=== PATIENT | male | born 2005 | race Caucasian/White ===

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

== ENCOUNTER 2025-03-17 21:13 | Emergency (ER) | payer MEDICAID ==
[~2025-03-17] VITALS: Ht 175.3 cm; Wt 52.1 kg
[2025-03-17 21:14] VITALS: TEMP 97.2
[2025-03-17] MEDS: proparacaine 0.5% ophthalmic drops 15ml RIGHTEYE ONE (22:20)
[2025-03-17] MEDS: cyclopentolate 1% 2ml ophthalmic solution RIGHTEYE ONE (22:20)
[2025-03-17] MEDS: HYDROcodone/acetaminophen 10/325mg tab PO ONE (22:22)
--- NOTE | 2025-03-17 23:36 | Physician Documentation ---
History of Present Illness ~ Chief Complaint: Eye Pain Stated Complaint: EYE PAIN Time Seen by MD: 22:15 OK to notify your PCP?: Yes Primary Medical Doctor: [facility] Source: patient, RN/MD, RN notes reviewed, old records Mode of Arrival: POV Exam Limitations: no limitations HPI 19 year old male seen on bed 04 presents to the emergency department for complaints of right sided eye pain that began tonight at 1900. He states that today his vision in his right eye became blurry, he took a nap at 1500 and when he woke up at 1900 his pain was 10/10. He was brought in by his mother for evaluation. Patient states that he uses electronics and looks at screens for over ten hours a day. Medication Reconciliation Allergies: Coded Allergies: No Known Allergies (Unverified , 03/17/25) Past Medical History Past Medical History: No Pertinent History Past Surgical History: appendectomy Alcohol Use: None Drug Use: marijuana Lives with: Family Lives In: Home Occupation: student, child Review of Systems All Other Systems at this time: Reviewed and Negative ROS As stated above in the HPI, otherwise all systems are reviewed and negative. Physical Exam Vital Signs: RN Vital Signs have been reviewed: Yes, Temperature: 97.2, Source: Oral, Heart Rate: 78, Respiratory Rate: 16, BP: 188/132, Pulse Oximetry: 100, Weight: 52.100 Oxygen Flow Rate: 0 Pulse Oximetry Reflects: adequate oxygenation Physical Exam General: The patient is well developed, well nourished, nontoxic appearing and is in no acute distress. Skin: [place], warm and dry with no rashes. HEENT: Right pupil fixed 1mm to the left. Head was normocephalic and atraumatic. Eyes - pupils equal, round, reactive to light and accommodation. Extraocular movements were intact. Conjunctivae were nonicteric. Ears - bilateral tympanic membranes were normal. The mouth and oropharynx were clear with moist mucous membranes. There were no pharyngeal exudates or erythema. Neck: Supple and nontender. There was no jugular venous distention, lymphadenopathy, thyromegaly or masses. Chest: Clear to auscultation bilaterally without wheezes, rales or rhonchi. No accessory muscle use. No dullness to percussion. Heart: Rate regular and rhythmic. S1, S2. No murmurs. Palpation of the chest wall was normal. No rubs or thrills. Abdomen: Soft, nontender and nondistended. Positive bowel sounds. No guarding or rebound. No hepatosplenomegaly or palpable masses. Extremities: No cyanosis, clubbing or edema. The patient moves all extremities. Pulses were equal and symmetric. Neurologic: Cranial nerves II-XII were intact. Sensation was intact to light touch throughout. Motor strength was 5/5 in all four extremities. Deep tendon reflexes were intact in both upper and lower extremities. Psychologic: The patient was oriented to person, place and time. The patient demonstrated appropriate judgement and insight. Progress Results/Orders Reviewed/noted all lab results: Yes Results/Orders Completed Orders - SANDIP SMITH MD Hydrocodone/Apap 10/325 ([place] 10/325mg (03/17/25 22:15) Proparacaine Ophth Solution (Alcaine Oph (03/17/25 22:20) Cyclopentolate Ophth Solution (Cyclogyl (03/17/25 22:20) C-Reactive Protein (03/17/25 23:35) Procalcitonin (03/17/25 23:35) ESR (03/17/25 23:35) Cbc/Diff (03/17/25 23:36) BMP (03/17/25 23:36) Dexamethasone Tablet (Decadron Tablet) (03/18/25 00:05) Tropicamide 0.5% Ophth Drops (Mydriacyl (03/18/25 00:05) Prednisolone Ophth Susp. (Prednisolone O (03/18/25 00:25) Medications Received in ER Medications (Trade) Dose Ordered Sig/Nicholas Route PRN Reason Start Time Stop Time Status Last Admin Dose Admin ([place] 10/325mg tab) 1 tab ONCE ONCE PO 03/17/25 22:15 03/17/25 22:16 DC 03/17/25 22:22 1 TAB (Decadron tablet) 16 mg ONCE ONCE PO 03/18/25 00:05 03/18/25 00:06 DC 03/18/25 00:33 16 MG Vital Signs 03/17/25 03/17/25 03/17/25 03/18/25 21:14 21:33 23:10 00:39 Temp 97.2 Pulse 78 66 52 Resp 16 16 18 18 B/P (MAP) 188/132 120/86 (97) 125/85 (98) Pulse Ox 100 98 97 O2 Flow Rate 0 03/18/25 01:44 Pulse 64 Resp 16 B/P (MAP) 122/74 Pulse Ox 98 Laboratory Tests Test 03/17/25 23:44 White Blood Count 14.8 H Red Blood Count 4.80 Hemoglobin 13.9 L Hematocrit 41.6 L Mean Corpuscular Volume 86.7 Mean Corpuscular Hemoglobin 29.0 Mean Corpuscular Hemoglobin Concent 33.4 Red Cell Distribution Width 14.2 Platelet Count 266 Mean Platelet Volume 6.7 L Neutrophils (%) (Auto) 63.3 Lymphocytes (%) (Auto) 24.9 Monocytes (%) (Auto) 8.0 Eosinophils (%) (Auto) 3.3 Basophils (%) (Auto) 0.5 Neutrophils # (Auto) 9.3 H Lymphocytes # (Auto) 3.7 Monocytes # (Auto) 1.2 H Eosinophils # (Auto) 0.5 Basophils # (Auto) 0.1 CBC Comment Erythrocyte Sedimentation Rate 3 Sodium Level 140 Potassium Level 3.7 Chloride Level 103 Carbon Dioxide Level 29.4 Anion Gap 8 Blood Urea Nitrogen 19 H Creatinine 0.91 Estimated GFR/1.73 m2 > 90 BUN/Creatinine Ratio 20.9 H Glucose Level 127 H Calcium Level 9.0 C-Reactive Protein 0.16 Albumin 4.2 Procalcitonin < 0.05 Chemistry Comments Re-Evaluation Re-Evaluation : Re-Evaluation: Improved Progress Patient was seen and examined. Patient is given reassurance. Patient was found to have a fixed pupil that was painful with some limbic injection. Patient apparently constantly plays on the computer. Patient is wearing sunglasses was then quite significant discomfort. Numbing agents were given to the eye. The globe was palpated and soft. Patient received medications to paralyze the ciliary muscles as well as steroid eyedrops. Both long-acting and short-acting medications were given. Was then given reassurance and discharged home to follow up with Ophthalmology in the morning. Patient's pain dramatically improved once his eye was dilated. Medical Decision Making Eye Diff. Dx: Considerations: Include: Glaucoma, Iritis, Orbital cellulitis, Periobital cellulitis, Retinal artery occulsion, Retinal vein occlusion, Other Departure Time of Disposition: 01:17 Disposition: 01 HOME / SELF CARE / HOMELESS Impression: Primary Impression: Iritis Condition: Stable Discharge Instructions: Medical Screening Exam Additional Instructions: Patient is instructed to follow up with technical clerk tomorrow. You are instructed to wear sunglasses as often as possible and stay off of electronics and away from screens. When you present to the technical clerk bring your medication. If you have pain in the morning use your eyedrops, if not bring them to your technical clerk. Referrals: NO PRIMARY CARE PROVIDER (PCP) Education Educated: Patient, Family Educated regarding: diagnosis, treatment, prognosis, need for follow up Signature Scribe Signature: Scribed for Sandip Smith MD by Sophia Monreal . 03/18/25 00:04 Attestation: The note accurately reflects work and decisions made by me.Sandip Smith MD 03/17/25 23:36 SANDIP SMITH MD Mar 17, 2025 23:36 SOPHIA SINGH Mar 17, 2025 23:52
[2025-03-17 23:58] LABS: MEAN PLATELET VOLUME 6.7 FL (7.4-10.4); RED CELL DISTRIBUTION WIDTH 14.2 % (11.5-14.5)
[2025-03-18 00:02] LABS: CREATININE 0.91 MG/DL (0.60-1.10); TOTAL CARBON DIOXIDE 29.4 MMOL/L (24-32); eCRCL 95 ML/MIN; eGFR > 90 ML/MIN
[2025-03-18] MEDS: prednisoLONE acetate 1% ophth susp 5ml RIGHTEYE ONE (00:56)
[2025-03-18] MEDS: TROPICAMIDE 0.5% RIGHTEYE ONE (00:56)
[2025-03-18 01:44] VITALS: BP 122/74; PULSE 64; RESP 16; O2SAT 98
== END 2025-03-18 01:45 | disposition home or self-care (01) ==
LOC: ER 21:14
DX: H20.9 Unspecified iridocyclitis (principal); F12.90 Cannabis use, unspecified, uncomplicated; Z90.49 Acquired absence of other specified parts of digestive tract
CPT/HCPCS: 36415; 80048; 84145; 85025; 85651; 86140; 99283; 99284